=== PATIENT | male | born 1960 | race Caucasian/White ===

== ENCOUNTER 2016-09-02 08:14 | Emergency (ER) | payer BC ==
[~2016-09-02 08:14] MED LIST: FENO135C PO; HYDR-2672 PO; MELO15TA6 PO
[2016-09-02 08:42] VITALS: BP 154/96
--- NOTE | 2016-09-02 08:53 | PHYS DOC ---
Past Medical History Past Medical History: Arthritis, High Cholesterol Additional Past Medical Histor: arthitis Past Surgical History: Other Additional Past Surgical Histo: BACK Alcohol Use: Rarely Drug Use: None Adult General Chief Complaint Chief Complaint: FINGER INJURY HPI HPI Patient is a 56 year old male with history of hypercholesterolemia and asthma who presents with left index finger growth of that he noted on Thursday which is three days ago. Patient denies any drainage from the area. Review of Systems Review of Systems Constitutional: Denies fever or chills [] Musculoskeletal: Denies back pain or joint pain [] Integument: left index finger growth Neurologic: Denies headache, focal weakness or sensory changes [] Endocrine: Denies polyuria or polydipsia [] Current Medications Current Medications Current Medications Medications (Trade) Dose Ordered Sig/Alfredo Start Time Stop Time Status Last Admin Dose Admin Acetaminophen/ Hydrocodone Bitart (Lortab 5/325) 1 tab 1X ONCE 09/02/16 09:00 09/02/16 09:01 DC 09/02/16 08:55 1 TAB Bupivacaine HCl (Marcaine 0.5%) 50 ml 1X ONCE 09/02/16 09:00 09/02/16 09:01 DC 09/02/16 08:56 50 ML Allergies Allergies Allergies Coded Allergies Type Severity Reaction Last Updated Verified Penicillins Allergy Intermediate Hives 08/11/14 Yes Physical Exam Physical Exam Constitutional: Well developed, well nourished, no acute distress, non-toxic appearance. Skin: Left index finger ventral aspect slightly above the MIP joint with an isolated growth approximately 0.1 x 0.1 x 0.3 cm. I slight redness noted at the base of the growth. The growth feels mobile. Back: No tenderness, no CVA tenderness. [] Extremities: No tenderness, no cyanosis, no clubbing, ROM intact, no edema. [] Neurologic: Alert and oriented X 3, normal motor function, normal sensory function, no focal deficits noted. [] Psychologic: Affect normal, judgement normal, mood normal. [] Current Patient Data Vital Signs Vital Signs Date Time Temp Pulse Resp B/P Pulse Ox O2 Delivery O2 Flow Rate FiO2 09/02/16 08:55 12 09/02/16 08:42 98.1 83 98 Room Air 98.1 EKG EKG [] Radiology/Procedures Radiology/Procedures [] Course & Med Decision Making Course & Med Decision Making Pertinent Labs and Imaging studies reviewed. (See chart for details) Patient is in the Ed with growth/lesion to the left. Tetanus was updated. He left before xray was back. I recommended he follows up with the fire technology instructor as soon as he can to have the lesion biopsied. He was given [place] in the Ed. When xray came back it showed there is a possible foreign object on the area of pain. I tried to call patient with no success. Dragon Disclaimer Dragon Disclaimer This electronic medical record was generated, in whole or in part, using a voice recognition dictation system. Departure Departure Impression: Primary Impression: Finger lesion Additional Impression: Foreign body finger Disposition: 01 HOME, SELF-CARE Condition: STABLE Referrals: SHIV MILLER MD (PCP) MCKAYLA CROSS MD Please call this fire technology instructor and follow up as soon as possible Patient Instructions: Excision of Skin Lesions Additional Instructions: You were seen for a lesion on your finger. Please follow up with the provided fire technology instructor as soon as possible they may need to biopsy the lesion to see what it is. Keep the area clean and dry. Scripts Hydrocodone/Apap 5-325 ([place] 5-325 Tablet)1 Each Tablet1-2 Tab PO Q4-6HRS #14 TAB Prov:DALIA BRODERICK APRN 09/02/16 Problem Qualifiers DALIA BRODERICK APRN Sep 02, 2016 08:53
[2016-09-02] MEDS ORDERED: HYDROCODONE/APAP 5/325MG TABLET. PO ONE (09:00)
[2016-09-02] MEDS ORDERED: BUPIVACAINE 0.5% 50 ML VIAL. IJ ONE (09:00)
[2016-09-02] MEDS ORDERED: HYDR-971 PO (09:42)
--- NOTE | 2016-09-02 09:51 | RAD ---
Left index finger, 3 views, 09/02/2016: History: Lump There is a small periarticular calcification adjacent to the DIP joint compatible with an old nonunited fracture. There is mild spurring at the DIP joint compatible with secondary degenerative change. Minimal spurring is also noted at other scattered interphalangeal joints including the PIP joint of the index finger. No acute fracture or dislocation is evident. A small radiopacity projected over the soft tissues along the radial aspect of the proximal phalanx on one view is not evident on the other views and was probably an artifact. IMPRESSION: 1. Small fracture fragment at the DIP joint of the index finger which appears to be old with underlying degenerative change at that joint. 2. No acute bony abnormality is detected.
== END 2016-09-02 10:06 | disposition home or self-care (01) ==
LOC: ER 08:14
DX: M25.842 Other specified joint disorders, left hand (principal); E78.00 Pure hypercholesterolemia, unspecified; M19.90 Unspecified osteoarthritis, unspecified site; J45.909 Unspecified asthma, uncomplicated; Z88.0 Allergy status to penicillin
CPT/HCPCS: 73140; 96372; 99284; J3490; 99283

== ENCOUNTER 2017-04-20 20:05 | Emergency (ER) | payer OTHER, BC ==
[~2017-04-20] VITALS: Ht 167.6 cm; Wt 90.3 kg
[~2017-04-20 20:05] MED LIST changes: -HYDR-2672 PO; +HYDR-2766 PO; +HYDR-971 PO
[2017-04-20 20:40] VITALS: BP 118/59
[2017-04-20] MEDS ORDERED: diazePAM 5 MG TABLET PO ONE (21:15)
[2017-04-20] MEDS ORDERED: HYDROmorphone 2 MG/ML VIAL IM ONE (21:15)
[2017-04-20] MEDS ORDERED: DIAZ5TAB PO (21:19)
[2017-04-20] MEDS ORDERED: OXYC10TA PO (21:19)
--- NOTE | 2017-04-20 21:19 | PHYS DOC ---
Past Medical History Past Medical History: Arthritis, High Cholesterol Additional Past Medical Histor: arthitis Past Surgical History: Other Additional Past Surgical Histo: BACK Alcohol Use: Occasionally Drug Use: None Adult General Chief Complaint Chief Complaint: HIP PAIN HPI HPI Patient is a 56 year old male who presents with moderate right low back pain radiating into the right hip and right lower extremity that has been going on for week. Patient states he has already been seen by the PCP who put him on oxycodone and cyclobenzaprine. Patient states today his pain got worse. No known injury. Patient denies any loss of bowel bladder function. Denies any numbness or tingling to bilateral lower extremities. He states he had muscle spasms on the right inner thigh today. Review of Systems Review of Systems Constitutional: Denies fever or chills [] GI: Denies abdominal pain, nausea, vomiting, bloody stools or diarrhea [] : Denies dysuria or hematuria [] Musculoskeletal: Right low back pain radiating into the right hip and right lower extremity Integument: Denies rash or skin lesions [] Neurologic: Denies headache, focal weakness or sensory changes [] Current Medications Current Medications Current Medications Medications (Trade) Dose Ordered Sig/Alfredo Start Time Stop Time Status Last Admin Dose Admin Diazepam (Valium) 5 mg 1X ONCE 04/20/17 21:15 04/20/17 21:16 DC 04/20/17 21:07 5 MG Hydromorphone HCl (Dilaudid) 1 mg 1X ONCE 04/20/17 21:15 04/20/17 21:16 DC 04/20/17 21:06 1 MG Ketorolac Tromethamine (Toradol Im) 60 mg 1X ONCE 04/20/17 21:30 04/20/17 21:31 04/20/17 21:07 60 MG Allergies Allergies Allergies Coded Allergies Type Severity Reaction Last Updated Verified Penicillins Allergy Intermediate Hives 08/11/14 Yes Physical Exam Physical Exam Constitutional: Well developed, well nourished, no acute distress, non-toxic appearance. [] Abdomen: Bowel sounds normal, soft, no tenderness, no masses, no pulsatile masses. [] Skin: Warm, dry, no erythema, no rash. [] Back: Exam difficult due to pain, no CVA tenderness. Positive right leg straight raises Extremities: No tenderness, no cyanosis, no clubbing, ROM intact, no edema. [] Neurologic: Alert and oriented X 3, normal motor function, normal sensory function, no focal deficits noted. [] Psychologic: Affect normal, judgement normal, mood normal. [] Current Patient Data Vital Signs Vital Signs Date Time Temp Pulse Resp B/P (MAP) Pulse Ox O2 Delivery O2 Flow Rate FiO2 04/20/17 21:06 18 Room Air 04/20/17 20:40 98.3 68 97 98.3 EKG EKG [] Radiology/Procedures Radiology/Procedures [] Course & Med Decision Making Course & Med Decision Making Pertinent Labs and Imaging studies reviewed. (See chart for details) Patient is in the ED with right low back pain radiating into the right hip and right lower extremity. He does have hx of low back pain. He was seen by the PCP. was given medications. He states his pain is worse today. Gave him pain relief in the ED and discharged with instructions to follow-up with the PCP in the next 1-3 days. He has no symptoms for Cauda equina syndrome. Dragon Disclaimer Dragon Disclaimer This electronic medical record was generated, in whole or in part, using a voice recognition dictation system. Departure Departure Impression: Primary Impression: Back pain Additional Impressions: Sciatica, right side Right hip pain Disposition: HOME, SELF-CARE Condition: STABLE Referrals: SHIV MILLER MD (PCP) Follow-up with your doctor tomorrow Patient Instructions: Back Pain, Adult, Hip Pain, Sciatica with Rehab-SportsMed Additional Instructions: You were seen for right hip pain, right low back pain, and pain radiating to the right lower extremity consistent with sciatica. We highly recommend you contact your primary care doctor tomorrow and follow-up. Come back to the ED at any point symptoms worsen. Scripts Oxycodone Hcl (OXYCODONE HCL) 10 Mg Tablet 1 TAB PO TID, #15 TAB Prov: MUTUNGADALIA COLLEGE TEACHER 04/20/17 Diazepam (VALIUM) 5 Mg Tablet 5 MG PO TID, #15 TAB Prov: MUTUNGA,DALIA COLLEGE TEACHER 04/20/17 Problem Qualifiers Primary Impression: Back pain Back pain location: low back pain Chronicity: acute Back pain laterality: right Sciatica presence: with sciatica Sciatica laterality: sciatica of right side Qualified Codes: M54.41 - Lumbago with sciatica, right side DALIA BRODERICK APRN Apr 20, 2017 21:19
[2017-04-20] MEDS ORDERED: KETOROLAC TROMETHAMINE 60 MG/2 ML INJ. IM ONE (21:30)
== END 2017-04-20 21:34 | disposition home or self-care (01) ==
LOC: ER 20:05
DX: M54.41 Lumbago with sciatica, right side (principal); E78.00 Pure hypercholesterolemia, unspecified; M19.90 Unspecified osteoarthritis, unspecified site; Z88.0 Allergy status to penicillin
CPT/HCPCS: 96372; 99284; J1170; J1885

== ENCOUNTER → 2017-04-29 | Outpatient (CLI) | payer OTHER, BC ==
[2017-04-20 20:40] VITALS: BP 118/59
[~2017-04-29] MED LIST changes: +DIAZ5TAB PO; +OXYC10TA PO
--- NOTE | 2017-04-29 08:59 | KCIC ---
MRI Lumbar Spine without contrast History: Low back pain with right radiculopathy, previous back surgeries, pain for a few months worse the last couple of weeks Technique: Multiplanar, multi sequential noncontrast MR imaging was performed of the lumbar spine. Contrast: None Comparison: None Findings: There appears to be transitional anatomy. For the purpose of this report, most inferior fully formed although rudimentary intervertebral disc space is considered L5-S1. Based on this assumption, there is very minimal posterior subluxation of what is considered L4 relative to L5 and negligible anterior spondylolisthesis at what is considered L3-4. There is hemangioma of T12. Conus terminates at T12-L1. There is advanced degenerative disc disease at L4-5, minimally at L3-4. There is mild edema of the bilateral L4 pedicles extending to the facet articular processes more likely to be reactive/degenerative in etiology. Lumbar vertebral body stature is preserved. Not fully included, there is a 2.7 cm T2 hyperintense lesion of the left kidney, also small focus on the order of 1 cm. Foci are statistically most likely due to cysts. L1-L2: Spinal canal and neural foramina are adequate. L2-L3: Spinal canal and neural foramina are adequate. L3-L4: There is moderate to severe facet degenerative change. There is fluid in the facet articulations bilaterally. There is minimal posterior bulge. There is also larger focus of extradural signal abnormality extending above the intervertebral disc space in the right lateral recess somewhat hyperintense relative to signal characteristics of adjacent disc although extruded disc fragment favored. This measures approximately 18 mm CC by 11 mm AP by 15 mm transverse. There is severe narrowing of the right lateral recess above the intervertebral disc space level, also impingement of the right L3 nerve root at the proximal aspect of the neural foramen and in the right lateral recess. There is severe narrowing of the right neural foramen more proximally, to a somewhat lesser degree more distally by bulge which contacts the undersurface of the exiting right L3 nerve root including in the proximal extraforaminal region. Left neural foramen is overall adequate. At the intervertebral disc space level, there is overall moderate narrowing of the far lateral recesses bilaterally. Just below the intervertebral disc space, there is also 14 mm CC by 9 mm AP by 9 mm presumable synovial cyst in the posterior right lateral recess. There is indentation upon the posterior aspect of the thecal sac in the right lateral recess extending to the mid aspect of L4, overall moderate to severe right lateral recess stenosis. L4-L5: There is broad disc osteophyte complex. There has been right laminectomy. At the intervertebral disc space level, there is minimal narrowing of the far right lateral recess. Neural foramina are adequate. L5-S1: Spinal canal and neural foramina are adequate. Impression: 1. There appears to be transitional anatomy. For the purpose of this report, the most inferior fully formed although rudimentary intervertebral disc space is considered L5-S1. There is very minimal posterior subluxation of what is considered L4 relative to L5 and negligible anterior spondylolisthesis at what is considered L3-4. 2. Larger focus of signal abnormality extending above the L3-4 intervertebral disc space in the right lateral recess is most likely a large extrusion, impingement of the right L3 nerve root in the right lateral recess and also at the proximal aspect of the right L2-3 neural foramen. There is also a synovial cyst just below the L3-4 intervertebral disc space level in the posterior right lateral recess with right lateral recess stenosis. At the L3-4 intervertebral disc space level, there is overall moderate spinal stenosis. There is severe narrowing of the proximal right L3-4 neural foramen, to lesser degree more distally with contact undersurface exiting right L3 nerve root by bulge including in the proximal extraforaminal region. 3. There is advanced degenerative disc disease L4-5, minimally at L3-4. 4. Edema of the bilateral L4 pedicles extending to the facet articular processes is more likely to be reactive/degenerative in etiology. 5. Not fully included, T2 hyperintense foci of the visualized left kidney are more likely due to cysts. Electronically signed by: Jerome Dowling MD (04/29/2017 8:56 AM) [email or web address]
== END | disposition home or self-care (01) ==
LOC: KCIC MRI 07:54
PROVIDERS: ATTEND Family Medicine
DX: M48.06 Spinal stenosis, lumbar region (principal); M71.38 Other bursal cyst, other site; M43.16 Spondylolisthesis, lumbar region
CPT/HCPCS: 72148

== ENCOUNTER → 2017-06-17 | Outpatient (CLI) | payer OTHER, BC ==
[~2017-06-17] MED LIST changes: +CYCL10TA2 PO; +DOCU-109 PO; +OXYC-327 PO
[2017-06-17 14:03] LABS: BASO % 1 % (0-3); EOS % 1 % (0-3); HEMOGLOBIN 14.7 g/dL (13.0-17.5); LYMPH # 2.8 x10^3/uL (1.0-4.8); LYMPH % 31 % (24-48); MEAN CORPUSCULAR HEMOGLOBIN 31 pg (25-35); MEAN CORPUSCULAR HGB CONC 35 g/dL (31-37); MEAN CORPUSCULAR VOLUME 88 fL (79-100); MONO % 5 % (0-9); NEUT % 63 % (31-73); PLATELET COUNT 196 x10^3/uL (140-400); RED BLOOD COUNT 4.75 x10^6/uL (4.30-5.70); RED CELL DISTRIBUTION WIDTH 12.7 % (11.5-14.5); WHITE BLOOD COUNT 8.9 x10^3/uL (4.0-11.0)
[2017-06-17 14:14] LABS: ALBUMIN 3.8 g/dL (3.4-5.0); ALBUMIN/GLOBULIN RATIO 1.1 (1.0-1.7); CALCIUM 8.4 mg/dL (8.5-10.1); CREATININE 1.1 mg/dL (0.7-1.3); GFR 69.5; POTASSIUM 3.3 mmol/L (3.5-5.1); TOTAL BILIRUBIN 0.3 mg/dL (0.2-1.0); TOTAL PROTEIN 7.4 g/dL (6.4-8.2)
== END | disposition home or self-care (01) ==
LOC: SURGPAT 13:26
PROVIDERS: ATTEND Neurological Surgery
DX: M54.16 Radiculopathy, lumbar region (principal); M51.26 Other intervertebral disc displacement, lumbar region; E78.00 Pure hypercholesterolemia, unspecified; M19.90 Unspecified osteoarthritis, unspecified site; F17.200 Nicotine dependence, unspecified, uncomplicated; Z72.89 Other problems related to lifestyle
CPT/HCPCS: 36415; 80053; 83036; 85025; 87641

== ENCOUNTER 2017-06-24 10:03 | Day surgery (SDC) | payer OTHER, BC ==
--- NOTE | 2017-06-23 18:28 | PREOP HP ---
DATE OF SERVICE: 06/24/2017 HISTORY OF PRESENT ILLNESS: The patient is a pleasant 57-year-old who reports over a recent month having difficulty with increasing low back pain and some pain which can radiate into his right leg. He early March and dissembled. He said that from that point forward, he has had extremely severe pain in his lower back on the right side, which radiates into his right leg. That pain tends to radiate over the right anterior and anterior medial thigh and medial leg. Standing and walking make the problem worse. He gets some relief when he lies down with his leg on pillows if he is lying on his left side. During the day, he says his pain never drops below 7/10. He is taking [place] 10/325, which barely helps. He feels as though there is some weakness and numbness in his right leg. The left leg is uninvolved. He has had 2 previous lumbar surgeries. One was done in 1989, the other was done by me in 2007. Following 2008 operation, he did very well. 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 He is missing work frequently, resting and trying to improve, but if anything, his problem has been slowly worsening. PAST MEDICAL HISTORY: Arthritis, MRSA infection. PAST SURGICAL HISTORY: Lumbar surgery in 1989, lumbar surgery in 2007, hernia surgery in 2009, cataract surgery in 2013. FAMILY HISTORY: Cancer, diabetes, heart disease. 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 . Smokes 1-1/2 packs per day and has for 30 years. Drinks alcohol 1-2 times per month. ALLERGIES: TO PENICILLIN. CURRENT MEDICATIONS: [place], meloxicam, fenofibric acid, cyclobenzaprine and a multivitamin. REVIEW OF SYSTEMS: A 12-point review of systems was obtained and is noncontributory except that mentioned above. PHYSICAL EXAMINATION: NEUROSURGERY EXAMINATION: GENERAL APPEARANCE: Alert, pleasant, in moderate distress. Sitting and leaning to the left decrease his pain. HEENT: Head normocephalic and atraumatic. SKIN: Warm and dry. MUSCULOSKELETAL: Lumbar paraspinal muscle bulk is normal, restricted range of motion of lumbar spine, moderate tenderness of lower lumbar spine with palpation, long well-healed incision is present. EXTREMITIES: No clubbing, cyanosis, or edema. NEUROLOGIC: Alert and oriented x 3, normal recent and remote memory, strength 5/5 in bilateral lower extremities except for 4+/5 right quadriceps, sensory was intact to light touch in bilateral lower extremities except for decrease along the right anterior medial thigh and leg. Reflexes were present and symmetric in the lower extremities bilaterally except for an absent right knee jerk, positive straight leg raising on the right at 30 degrees with back, right hip and right anterior medial leg pain relieved by Lasegue's maneuver, positive cross straight leg raising on the left, forward stooped gait, antalgic gait favoring the right leg. IMAGING: Reviewed. I reviewed the lumbar MRI scan done 04/29/2017. On that study, there are postoperative changes at L4-L5 corresponding to his previous surgery. At L3-L4, just below the disk space, there was a large right-sided synovial cyst with right-sided canal stenosis and narrowing of the right lateral recess. Extending of the disk space and superiorly on the right side, there appears to be a large disk extrusion which not only is associated with right-sided canal and lateral recess stenosis, but appears to compress the right L3 nerve root in the foramen as well. ASSESSMENT: 1. Other bursal cyst, unspecified site. 2. Intervertebral disk disorders with radiculopathy, lumbar region. PLAN: The patient is very symptomatic from a right lumbar radiculopathy. The pain has been such that he has already been seen in the Emergency Room. He is taking [place] 10/325, which he says is not managing his pain. The patient has had 2 significant abnormalities on the right side L3-L4 on the lumbar MRI scan. One is a large synovial cyst, the other is a large extruded disk fragment. The L3 and L4 roots on the right side are being compressed along with right-sided canal stenosis at this level. We spoke about treatment options. His pain is of such severity that I have taken him off work completely. I do not believe that the physical therapy and/or steroid injections can offer him any meaningful chance of improvement. I discussed with him surgery to both remove an extruded disk fragment, but also to deal with a large synovial cyst. I spoke about the risks of the surgery. I spoke about the technique of the operation in detail. He understands. He would like to go ahead. We will make the arrangements. DEYANIRA COOLEY MD DR: HERRERA/desmond JOB#: [id number] / [id number]
[~2017-06-24] VITALS: Ht 167.6 cm; Wt 95.3 kg
[~2017-06-24 10:03] MED LIST changes: +BACITRACIN 50,000 UNIT in IV NORMAL SALINE 1000ML BAG 1,000 ML IRR ONE; +BUPIVACAINE-EPI 0.25%-1:200000 MPF 30 ML VIAL. ONE; -DOCU-109 PO; +GELATIN SPONGE SIZE 100. ONE; +HYDROmorphone 2 MG/ML VIAL IV PRN; +IV RINGERS,LACTATED 1000ML 1,000 ML IV SCH; +KETOROLAC 60 MG/2 ML INJ FOR OR. ONE; +LIDOCAINE 1% PF 2 ML VIAL. ID PRN; +LIDOCAINE 2% PF Vial for OR 5 ML VIAL. ONE; +ONDANSETRON PF 4 MG/2 ML VIAL. IV PRN; +PROCHLORPERAZINE 10 MG/2 ML VIAL. IV PRN; +PROPOFOL 20 ML IV ONE; +REMIFENTANIL 2 MG VIAL. IV ONE; +ROCURONIUM 50 MG/5 ML VIAL. ONE; +THROMBIN TOPICAL 20,000 UNIT SPRAY.SYRN KIT TP ONE; +VANCOMYCIN 1GM IVPB FOR OMNI 250 ML IV PRN; +fentaNYL PF VIAL 100 MCG/2 ML VIAL IV PRN; +fentaNYL PF VIAL 100 MCG/2 ML VIAL ONE
[2017-06-24] MEDS ORDERED: LIDOCAINE 2% PF Vial for OR 5 ML VIAL. ONE (10:35)
[2017-06-24] MEDS ORDERED: ONDANSETRON PF 4 MG/2 ML VIAL. ONE (10:35)
[2017-06-24] MEDS ORDERED: PROPOFOL 20 ML IV ONE (10:35)
[2017-06-24] MEDS ORDERED: DESFLURANE > 120 MINUTES IH ONE ×2 (10:35→14:17)
[2017-06-24] MEDS ORDERED: PROPOFOL 50 ML IV ONE ×2 (10:35→14:11)
[2017-06-24] MEDS ORDERED: DEXAMETHASONE SOD PHOS 20 MG/5 ML VIAL. ONE (10:35)
[2017-06-24] MEDS ORDERED: MINERAL OIL/PETROLATUM,WHITE OPHTH OINT 3.5GM TUBE. ONE (10:37)
[2017-06-24] MEDS ORDERED: SUCCINYLCHOLINE 200 MG/10 ML VIAL. ONE (12:01)
[2017-06-24] MEDS ORDERED: fentaNYL PF VIAL 100 MCG/2 ML VIAL ONE ×2 (12:02→14:39)
[2017-06-24] MEDS ORDERED: PHENYLEPHRINE in 0.9% NACL PF 1 MG/10 ML DISP.SYRIN. IV ONE (12:29)
[2017-06-24] MEDS ORDERED: ePHEDrine PF IN SALINE 50 MG/5 ML DISP.SYRIN IV ONE (12:29)
[2017-06-24] MEDS ORDERED: GLYCOPYRROLATE 1 MG/5 ML VIAL. ONE (13:55)
[2017-06-24] MEDS ORDERED: NEOSTIGMINE METHYLSULFATE 5 MG/5 ML SYRINGE. ONE (13:55)
[2017-06-24] MEDS ORDERED: MORPHINE SULFATE 2 MG/ML DISP.SYRIN. ONE (14:38)
[2017-06-24] MEDS: MORPHINE SULFATE 2 MG/ML DISP.SYRIN. IV PRN ×2 (14:42→14:52)
[2017-06-24] MEDS: fentaNYL PF VIAL 100 MCG/2 ML VIAL IV PRN ×3 (14:57→15:25)
--- NOTE | 2017-06-24 15:14 | OP ---
DATE OF SURGERY: 06/24/2017 PREOPERATIVE DIAGNOSES: 1. Herniated lumbar disc, L3 with superior disc fragment compressing the right L3 nerve root. 2. Synovial cyst with lumbar spinal stenosis, L4. OPERATION PERFORMED: 1. Lumbar hemilaminectomy L3 with removal of superior disc herniation and decompression of L3 nerve root. 2. Laminectomy L4 with removal of synovial cyst and decompression of spinal stenosis. The operation was performed with EMG monitoring, fluoroscopy and microscopic dissection. SURGEON: Isaiah Cooley M.D. CHARGE MACHINE OPERATOR: Rodrigue Wilkinson MD assisted with the surgery. He assisted with the exposure, the microdiscectomy with removal of synovial cyst as well as the closure. OPERATIVE INDICATIONS: The patient is a pleasant 57-year-old man who developed severe intractable back and right leg pain which failed conservative measures. On imaging studies at L3-L4, there was superior disc herniation compressing the L3 and to lesser extent the L4 nerve roots as well as the synovial cyst, which was positioned behind the upper body of L4 on the right. I recommended lumbar microsurgery with a laminectomy at L3-L4 moving superiorly to remove the herniated disc superiorly as well as inferiorly over the body of L4 removing the synovial cyst. The operation was done with EMG monitoring, fluoroscopy and microscopic dissection. DESCRIPTION OF PROCEDURE: Following general endotracheal anesthesia, the patient was positioned prone on David table. His lumbar region was prepped and draped in standard fashion. NELLY hose and AV impulse boots were applied for DVT prophylaxis. The microscope was draped. Fluoroscopy was draped and brought in the field. Monitoring was established. Vancomycin 1 gram was given. Using fluoroscopic guidance, incision was made from inferior L4 to superior L3. Dissection was carried down to skin and subcutaneous tissue and the paraspinal muscles reflected laterally and a Bock micro disc retractor was placed. Microscope was brought in and the remainder of surgery done with the microscope using microscopic technique. I burred down a generous hemilaminectomy of L3. The ligament was densely scarred and adherent to the underlying dura so I spent a considerable time gently peeling down the ligament and thus was able to gain exposure superiorly to the region of the disc fragment. I worked inferiorly at this point and removed the ligament and drilled the laminectomy of L4 to allow me to remove the large synovial cyst and thickened ligament compressing the dura from the mid L4 region. Once this was accomplished the central canal stenosis was eliminated and the L4 and L5 roots were free. I then worked superiorly and further exposed the superior aspect of L3 as well as the L3 pedicle and gently retracted the dura medially. There was a large superior disc fragment abutting the inferior pedicle of L3 and extending superiorly along the medial aspect of the pedicle as well as a portion which extended out into the foramen. As I worked, the entire region became very well decompressed. Inferiorly, the L3-4 disc was quite flat and firm and no discectomy was warranted. I explored the entire region carefully and no retained fragments were found. I irrigated copiously with antibiotic solution. I did use bipolar cautery for any epidural bleeding as well as bleeding in the muscle and I also used bone wax for any bone bleeding. Hemostasis was excellent. I removed the retractor, irrigated copiously, obtained hemostasis in the muscle and then closed the wound in layers with absorbable suture and skin was closed with 4-0 subcuticular stitch. The operation went very well. I was quite pleased with the surgery. ISAIAH COOLEY MD DR: HERRERA/desmond JOB#: [id number] / [id number] DAMIR
--- NOTE | 2017-06-24 15:29 | DISCH ---
DISCHARGE INSTRUCTIONS Condition on Discharge Condition on Discharge: Stable Activity After Discharge Activity Instructions for Disc: Activity as tolerated, Avoid exertion Other activity instructions: no driving for a week Bathing Instructions: Shower-keep dressing dry Lifting Instructions after Dis: No heavy lifting, No pulling or pushing, Do not lift >10 pounds Diet after Discharge Additional Diet Restrictions: resume home diet Wound Incision Care Wound/Incision Care: Ice to area for comfort Other wound/incision instructi: may remove dressing in 48 hrs if dry then may shower- no soaking Contacting the after DC Call your doctor for: Concerns you may have Follow-Up Follow up with: Dr. Cooley's nurse [phone] DEYANIRA COOLEY MD Jun 24, 2017 15:29
[2017-06-24] MEDS ORDERED: oxyCODONE/APAP 7.5/325 1 TAB TABLET PO PRN (15:30)
[2017-06-24] MEDS ORDERED: DOCU-109 PO (15:32)
[2017-06-24 16:23] VITALS: BP 128/71
--- NOTE | 2017-06-29 11:46 | PATHOLOGY ---
PATHOLOGY REPORT * * * * * * * * FINAL DIAGNOSIS: A. Segments of fibrocartilaginous, fibroadipose, and skeletal muscle tissue and bone, lumbar decompression and disc: - Degenerative changes of fibrocartilaginous tissue. B. Segments of synovial and fibrocartilaginous tissue, designated "synovial cyst": - Synovial cyst showing focal reactive fibrosis and hemosiderin-laden macrophages. (JPM:august; 06/29/2017) COMMENT: There is no evidence of an acute inflammatory process or malignancy. REPORT ELECTRONICALLY SIGNED BY: Phill Glover M.D. DATE/TIME: 06/29/2017 11:46 * * * * * * * * GROSS PATHOLOGY: A. Received in formalin labeled "Mike Zamorano, lumbar decompression and disc," are multiple segments of glistening, whitmore, rubbery and gritty tissue, measuring 5.0 x 2.5 x 0.5 cm in aggregate dimensions. The tissue is submitted representatively in cassette A1, following decalcification. B. The specimen is received in formalin, labeled "Mike Zamorano, synovial cyst," and consists of 3 fragments of judd-whitmore soft tissue measuring between 1.0 x 0.9 x 0.4 cm and 0.5 x 0.4 x 0.2 cm. There are entirely submitted in cassette B1. (SDY; 06/26/2017) INITIAL CPT CODE(S): A; 17283, 38366 B; 92612 Professional services performed [place] [facility] [place] [address] Technical services performed by [facility] at [address] [place] [address], [address], [place] [address]. SPECIMEN(S) RECEIVED: A.Lumbar decompression and disc B.Synovial cyst CLINICAL HISTORY: Lumbar herniated disc, synovial cyst PATIENT: MIKE ZAMORANO /AGE: 1006/07/1960 (Age: 57) PATIENT #: [id number] ALT CASE #: SPECIMEN COLLECTION DATE: 06/24/2017 SPECIMEN RECEIVED DATE: 06/25/2017 [facility] - [address] [place] [address] - PHONE: [phone] * * * END OF REPORT * * *
== END 2017-06-24 16:46 | disposition home or self-care (01) ==
LOC: SURG 10:03
PROVIDERS: ATTEND Neurological Surgery
DX: M51.26 Other intervertebral disc displacement, lumbar region (principal); M48.061 Spinal stenosis, lumbar region without neurogenic claudication; M71.38 Other bursal cyst, other site; E78.00 Pure hypercholesterolemia, unspecified; K21.9 Gastro-esophageal reflux disease without esophagitis; F17.200 Nicotine dependence, unspecified, uncomplicated; M19.91 Primary osteoarthritis, unspecified site; Z72.89 Other problems related to lifestyle; Z86.69 Personal history of other diseases of the nervous system and sense organs; Z72.0 Tobacco use; Z88.0 Allergy status to penicillin
CPT/HCPCS: 63030; 63267; 76000; 88304; 88311; 97161; J0330; J1100; J1885; J2270; J2370; J2405; J2704; J2710; J3010; J3490; J7030; J2001

== ENCOUNTER → 2021-08-19 | Outpatient (CLI) | payer BC ==
[~2021-08-19] MED LIST changes: -BACITRACIN 50,000 UNIT in IV NORMAL SALINE 1000ML BAG 1,000 ML IRR ONE; -BUPIVACAINE-EPI 0.25%-1:200000 MPF 30 ML VIAL. ONE; +CYCL10TA19 PO; -CYCL10TA2 PO; +DOCU-109 PO; +GADOTERATE 7.5 MMOL/15ML VIAL. IVP ONE; -GELATIN SPONGE SIZE 100. ONE; -HYDR-2766 PO; +HYDR-2769 PO; +HYDR-3164 PO; -HYDR-971 PO; -HYDROmorphone 2 MG/ML VIAL IV PRN; -IV RINGERS,LACTATED 1000ML 1,000 ML IV SCH; -KETOROLAC 60 MG/2 ML INJ FOR OR. ONE; -LIDOCAINE 1% PF 2 ML VIAL. ID PRN; -LIDOCAINE 2% PF Vial for OR 5 ML VIAL. ONE; -ONDANSETRON PF 4 MG/2 ML VIAL. IV PRN; -OXYC-327 PO; +OXYC1TAB19 PO; -PROCHLORPERAZINE 10 MG/2 ML VIAL. IV PRN; -PROPOFOL 20 ML IV ONE; -REMIFENTANIL 2 MG VIAL. IV ONE; -ROCURONIUM 50 MG/5 ML VIAL. ONE; -THROMBIN TOPICAL 20,000 UNIT SPRAY.SYRN KIT TP ONE; -VANCOMYCIN 1GM IVPB FOR OMNI 250 ML IV PRN; -fentaNYL PF VIAL 100 MCG/2 ML VIAL IV PRN; -fentaNYL PF VIAL 100 MCG/2 ML VIAL ONE
--- NOTE | 2021-08-19 15:00 | KCIC ---
EXAM: Lumbar spine MRI without contrast. HISTORY: Back pain. Radiculopathy. TECHNIQUE: Multiplanar, multisequence magnetic resonance imaging of the lumbar spine was performed wi thout contrast. COMPARISON: 04/29/2017 FINDINGS: There is a transitional lumbosacral segment. This is considered a partially sacralized L5 s egment with rudimentary L5-S1 disc. Based on this numbering system, there is a 6 mm grade 1 anterolis thesis of L3 on L4. There is 3 mm retrolisthesis of L4 on L5. There is 2 mm retrolisthesis of T11 on T12. There is mild levoscoliosis. There is degenerative endplate remodeling with disc space narrowing and disc desiccation primarily at L3-L4 and L4-L5. There are multiple benign osseous hemangiomas. There is no suspicious osseous lesio n. There is no acute or subacute fracture. The conus terminates at T12-L1. There are small simple geo al cysts. The largest of these measures 3.3 cm on the left. Follow-up is not routinely performed for simple cysts. At T11-T12, there is a disc bulge and endplate remodeling. There is mild retrolisthesis. There is mil d left greater than right facet arthropathy. There is mild right foraminal stenosis. At T12-L1, there is mild left facet arthropathy. There is no stenosis. At L1-L2, there is no stenosis. At L2-L3, there is no stenosis. At L3-L4, there is a right foraminal to extra foraminal disc protrusion with 5 mm superior extrusion and annular tear. There is also a left lateral recess to foraminal disc protrusion and 4 mm superior extrusion and annular tear. These are superimposed on a disc bulge and endplate remodeling. There is severe bilateral facet arthropathy. There are partial right laminectomy changes. There is grade 1 ant erolisthesis. There is severe right greater than left foraminal stenosis. There is severe central can al stenosis. At L4-L5, there is a broad-based posterior central disc protrusion with slight superior and inferior extrusion and there is a right lateral recess to extra foraminal disc protrusion and osteophyte compl ex. These are superimposed on a disc bulge and endplate osteophytosis. There is mild retrolisthesis. There is mild right and moderate left facet arthropathy. There is a small posterior left facet joint synovial cyst. There are right hemilaminectomy changes. There is mild retrolisthesis. There is minima l bilateral foraminal stenosis. There is mild central canal stenosis. At L5-S1, there is a rudimentary disc. There is no stenosis. IMPRESSION: 1. L3-L4: Right foraminal to extraforaminal disc protrusion with superior extrusion and left lateral recess to foraminal disc protrusion with superior extrusion. These are superimposed on a disc bulge, endplate remodeling, severe facet arthropathy and grade 1 anterolisthesis, increased compared to the prior exam an associated with severe right greater than left foraminal and central canal stenosis. Th ere has been interval right hemilaminectomy changes at this level. The previously demonstrated synovi al cyst and posterior superior extruded disc material are no longer seen. 2. L4-L5: Degenerative changes resulting in minimal bilateral foraminal and mild central canal stenos is, not significantly changed compared to the prior study. There are stable right hemilaminectomy quin nges at this level. 3. Degenerative change throughout the remainder the lumbar spine, described above. 4. Transitional lumbosacral segment, considered a partially sacralized L5 segment for this dictation. Electronically signed by: Jill Mora MD (08/19/2021 2:57 PM) [id number]
== END ==
LOC: KCIC MRI 12:28
PROVIDERS: ATTEND Family Medicine
DX: M47.26 Other spondylosis with radiculopathy, lumbar region (principal); M51.27 Other intervertebral disc displacement, lumbosacral region; M48.07 Spinal stenosis, lumbosacral region; M48.8X7 Other specified spondylopathies, lumbosacral region; M43.19 Spondylolisthesis, multiple sites in spine; M43.27 Fusion of spine, lumbosacral region
CPT/HCPCS: 72158; A9575

== ENCOUNTER → 2021-10-09 | Outpatient (CLI) | payer BC ==
[~2021-10-09] MED LIST changes: -GADOTERATE 7.5 MMOL/15ML VIAL. IVP ONE
--- NOTE | 2021-10-09 15:30 | KCIC ---
EXAM: Lumbar spine, flexion and extension. HISTORY: Spondylolisthesis. COMPARISON: 08/19/2021. FINDINGS: Lateral neutral, flexion and extension views of the lumbar spine are obtained. There is a t ransitional lumbosacral segment. This is considered a partially sacralized L5 segment with rudimentar y L5-S1 disc for this dictation. Based on this numbering system, there is grade 1 anterolisthesis of L3 on L4 which measures 9 mm in neutral position and, 6 mm with extension and 12 mm with flexion. The re is uniform retrolisthesis of L4 on L5 which does not change between flexion and extension. There i s multilevel endplate remodeling and anterior spurring. There is suspected narrowing and facet arthro patrica predominantly at L4-L5, and to a lesser extent, L3-L4. IMPRESSION: 1. Grade 1 anterolisthesis of L3 on L4 which changes between flexion and extension. 2. Mild retrolisthesis of L4 and L5 which does not change between flexion and extension. 3. Multilevel degenerative change, primarily at L4-L5. 4. Transitional lumbosacral segment, considered L5 for this dictation. Electronically signed by: Jill Mora MD (10/09/2021 3:28 PM) [id number]
== END ==
LOC: KCIC 14:33
PROVIDERS: ATTEND Family Medicine
DX: M43.16 Spondylolisthesis, lumbar region (principal); M47.816 Spondylosis without myelopathy or radiculopathy, lumbar region; M46.06 Spinal enthesopathy, lumbar region; M43.27 Fusion of spine, lumbosacral region
CPT/HCPCS: 72100

== ENCOUNTER → 2021-10-29 | Outpatient (CLI) | payer BC ==
[~2021-10-29] MED LIST changes: +APRE30TA2 PO; +CELE100C PO
[2021-10-29 14:13] LABS: BASO # 0.1 x10^3/uL (0.0-0.2); BASO % 1 % (0-3); EOS # 0.1 x10^3/uL (0.0-0.7); EOS % 2 % (0-3); HEMATOCRIT 41.6 % (39.0-53.0); HEMOGLOBIN 14.4 g/dL (13.0-17.5); LYMPH # 2.3 x10^3/uL (1.0-4.8); LYMPH % 29 % (24-48); MEAN CORPUSCULAR HEMOGLOBIN 31 pg (25-35); MEAN CORPUSCULAR HGB CONC 35 g/dL (31-37); MEAN CORPUSCULAR VOLUME 89 fL (79-100); MONO # 0.7 x10^3/uL (0.0-1.1); MONO % 9 % (0-9); NEUT # 4.6 x10^3/uL (1.8-7.7); NEUT % 60 % (31-73); PLATELET COUNT 226 x10^3/uL (140-400); RED BLOOD COUNT 4.65 x10^6/uL (4.30-5.70); RED CELL DISTRIBUTION WIDTH 12.3 % (11.5-14.5); WHITE BLOOD COUNT 7.7 x10^3/uL (4.0-11.0)
[2021-10-29 14:25] LABS: PROTHROMBIN TIME PATIENT 12.9 SEC (11.7-14.0)
[2021-10-29 14:28] LABS: ALBUMIN 4.2 g/dL (3.4-5.0); ALBUMIN/GLOBULIN RATIO 1.2 (1.0-1.7); CALCIUM 8.1 mg/dL (8.5-10.1); CREATININE 0.9 mg/dL (0.7-1.3); GFR 86.4; POTASSIUM 3.9 mmol/L (3.5-5.1); TOTAL BILIRUBIN 0.3 mg/dL (0.2-1.0); TOTAL PROTEIN 7.7 g/dL (6.4-8.2)
== END ==
LOC: SURGPAT 13:33
PROVIDERS: ATTEND Neurological Surgery
DX: Z01.812 Encounter for preprocedural laboratory examination (principal); M48.062 Spinal stenosis, lumbar region with neurogenic claudication; M43.16 Spondylolisthesis, lumbar region; M51.16 Intervertebral disc disorders with radiculopathy, lumbar region
CPT/HCPCS: 36415; 80053; 85025; 85610; 85730; 87641

== ENCOUNTER 2021-11-04 05:59 | Inpatient (IN) | payer BC ==
[2021-10-29 14:01] VITALS: BP 127/67
--- NOTE | 2021-11-03 12:09 | PREOP HP ---
DATE OF SERVICE: 11/04/2021 HISTORY OF PRESENT ILLNESS: The patient is a pleasant 61-year-old who has undergone 3 surgeries on his lumbar spine. He currently has problems with low back pain and left greater than right leg pain. It radiates to the posterior thighs and legs to the top of his left foot. His toes feel numb. It started about a year ago and has been gradually worsening. He says his pain is usually 4-5/10, but with walking it increases to 10/10. Sitting and lying down helps. 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 He has continued to work. He takes gabapentin and Celebrex. Occasionally, he takes hydrocodone. He has had physical therapy in late 2019 for this problem with no significant improvement. He had epidural steroid injections in the past without benefit. CURRENT MEDICATIONS: Gabapentin, Otezla, hydrocodone, fenofibric acid, multivitamin, Celebrex. PAST MEDICAL HISTORY: Arthritis, MRSA infection, psoriasis. PAST SURGICAL HISTORY: Lumbar surgery in 1989, lumbar surgery in 2007, hernia surgery in 2009, cataract surgery in 2013, lumbar surgery with microdecompression, microdiskectomy and removal of synovial cyst at L3-4 in 05/2017. FAMILY HISTORY: Cancer, diabetes, heart disease. 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 . Smokes 1 pack per day for 40 years. Drinks alcohol 1-2 times per week. ALLERGIES: PENICILLIN ALLERGY. REVIEW OF SYSTEMS: A 12-point review of systems was performed and is noncontributory except that mentioned above. PHYSICAL EXAMINATION: GENERAL: Alert, pleasant, in no acute distress. HEENT: Head is normocephalic, atraumatic. SKIN: Warm and dry. Well-healed lumbar incision. MUSCULOSKELETAL: Lumbar paraspinal muscle bulk is normal, restricted range of motion of the lumbar spine, [id number] tenderness of the lower lumbar spine with palpation, normal range of motion of the lower extremities bilaterally. EXTREMITIES: No clubbing, cyanosis or edema. NEUROLOGIC: Alert and oriented x 3. Strength is 5/5 in the lower extremities bilaterally. Sensory was intact to light touch in the lower extremities bilaterally. Reflexes were present and symmetric in the lower extremities bilaterally, markedly positive straight leg raising on the left, relieved by Lasegue's maneuver, negative straight leg raising on the right, normal gait. IMAGING: I reviewed a lumbar MRI scan. On that study, there is transitional lumbosacral segment. Based on that numbering system, there is a 6 mm grade 1 anterolisthesis of L3 on L4. There appears to be bilateral disk/foraminal disk protrusions at this level. On the left side, it extends 4 mm superiorly. There are postoperative changes on the right side. There is severe canal stenosis. ASSESSMENT AND PLAN: I believe the stenosis at L3-4 and the left-sided lateral recess narrowing is responsible for much of his pain. At this point, I did have a lumbar flexion and extension was performed. He felt that I would perform a left direct laminectomy at L3-4 combined with a posterior instrumentation and posterolateral fusion. I discussed all this with him including the technique, the risk and the expected postoperative course. He understands and would like to go ahead. ORIANA DR: Reinaldo TID: [id number] DAMIR
[~2021-11-04] VITALS: Ht 170.2 cm; Wt 83.7 kg
[~2021-11-04 05:59] MED LIST changes: +DEXAMETHASONE SOD PHOS 4 MG/ML VIAL ONE; +LIDOCAINE 2% PF 5 ML VIAL. ONE; +ONDANSETRON PF 4 MG/2 ML VIAL. ONE; +PHENYLEPHRINE 10 MG/ML VIAL. ONE; +PROPOFOL 10 MG/ML (20ML) VIAL. IV ONE; +PROPOFOL 50 ML IV ONE; +REMIFENTANIL 1 MG VIAL. IV ONE; +SUCCINYLCHOLINE 200 MG/10 ML VIAL. ONE; +fentaNYL PF VIAL 100 MCG/2 ML VIAL ONE
[2021-11-04] MEDS ORDERED: PROCHLORPERAZINE 10 MG/2 ML VIAL. IVP PRN (06:00)
[2021-11-04] MEDS ORDERED: fentaNYL PF VIAL 100 MCG/2 ML VIAL IVP PRN ×2 (06:00)
[2021-11-04] MEDS ORDERED: IV RINGERS,LACTATED 1000ML 1,000 ML IV SCH (06:00)
[2021-11-04] MEDS ORDERED: ceFAZolin SODIUM 1 GM in IV NORMAL SALINE 1000ML BAG 1,000 ML IRR ONE (06:00)
[2021-11-04] MEDS ORDERED: MORPHINE SULFATE 2 MG/ML INJ. IVP PRN (06:00)
[2021-11-04] MEDS ORDERED: HYDROmorphone 2 MG/ML INJ. IVP PRN (06:00)
[2021-11-04 06:26] VITALS: BP 115/71
[2021-11-04] MEDS ORDERED: THROMBIN TOPICAL 20,000 UNIT SPRAY.SYRN KIT TP ONE (06:35)
[2021-11-04] MEDS ORDERED: BUPIVACAINE-EPI 0.5% 30 ML VIAL KIT. ONE (06:35)
[2021-11-04] MEDS ORDERED: KETOROLAC 60 MG/2 ML VIAL. ONE (06:35)
[2021-11-04] MEDS ORDERED: GELATIN SPONGE SIZE 100. ONE (06:35)
[2021-11-04] MEDS ORDERED: KETAMINE HCL IN NACL, ISO-OSM 50 MG/5 ML SYRINGE ONE (07:41)
[2021-11-04] MEDS ORDERED: PROPOFOL 50 ML IV ONE ×2 (09:15→10:15)
--- NOTE | 2021-11-04 10:12 | RAD ---
PQRS Compliance Statement: One or more of the following individualized dose reduction techniques were utilized for this examinat ion: 1. Automated exposure control 2. Adjustment of the mA and/or kV according to patient size 3. Use of iterative reconstruction technique CT LUMBAR SPINE WO Clinical Indication: Reason: BRAIN LAB, LUMBAR STENOSIS Comparison: MR lumbar spine without contrast, August 19, 2021. Findings: Numbering scheme utilized previously. Transitional lumbosacral anatomy. Partially sacralized L5 segme nt with a rudimentary L5/S1 disc. There is unchanged grade 1 anterolisthesis of L3 on L4. There is un changed grade 1 retrolisthesis of L4 on L5. The alignment is otherwise maintained. There is vacuum di sc phenomenon of L4/L5. There is no acute compression fracture. The right sacroiliac joint is partial ly fused. L1/L2: The central canal is adequate. There is mild facet hypertrophy. Neural foramina are patent. L2/L3: The central canal and neural foramina are patent. L3/L4: There is anterolisthesis at this level. There is unroofing of the disc. There is broad-based p osterior disc bulge. There is severe facet hypertrophy. There is ligament flavum redundancy. There is right hemilaminotomy. There is severe central canal stenosis. There is severe bilateral neural vielka inal narrowing. L4/L5: There is mild retrolisthesis at this level. There is posterior disc osteophyte complex. There is moderate facet hypertrophy. There is right hemilaminotomy. There is mild central canal stenosis. T here is mild bilateral neural foraminal narrowing. L5/S1: The central canal is adequate. The neural foramina are patent. Left renal cyst does not require follow-up. There is no hydronephrosis. Atherosclerotic abdominal aor ta, no aneurysm. IMPRESSION: 1. Transitional lumbosacral anatomy. Numbering scheme same as prior study. 2. At L3/L4 there is severe central canal stenosis and severe bilateral neural foraminal narrowing. 3. Redemonstrated right hemilaminotomy of L3/L4 and L4/L5. Electronically signed by: Lonnie Montague MD (11/04/2021 10:10 AM) [id number]
[2021-11-04] MEDS ORDERED: HYDROmorphone 2 MG/ML INJ. ONE (11:58)
[2021-11-04] MEDS ORDERED: 0.9 % SODIUM CHLORIDE 10 ML DISP.SYRIN. IV PRN (14:30)
[2021-11-04] MEDS ORDERED: ACETAMINOPHEN 325 MG TABLET. PO PRN (14:30)
[2021-11-04] MEDS ORDERED: diphenhydrAMINE HCL 25 MG CAPSULE PO PRN (14:30)
[2021-11-04] MEDS ORDERED: MAGNESIUM HYDROXIDE 2,400 MG/30 ML ORAL.SUSP. PO PRN (14:30)
[2021-11-04] MEDS ORDERED: CYCLOBENZAPRINE 10 MG TABLET. PO PRN (14:30)
[2021-11-04] MEDS ORDERED: oxyCODONE/APAP 5/325 1 TAB TABLET PO PRN (14:30)
[2021-11-04] MEDS ORDERED: CALCIUM CARBONATE 500 MG TAB.CHEW PO PRN (14:30)
[2021-11-04] MEDS ORDERED: NALOXONE 0.4 MG/ML VIAL. IV PRN (14:30)
[2021-11-04] MEDS ORDERED: MAG HYDROX/ALUMINUM HYD/SIMETH 30 ML ORAL.SUSP PO PRN (14:30)
[2021-11-04] MEDS ORDERED: ONDANSETRON PF 4 MG/2 ML VIAL. IVP PRN (14:30)
[2021-11-04 15:40] VITALS: BP 115/76
[2021-11-04] MEDS: POTASSIUM CL 20MEQ D5-0.45NACL 1,000 ML IV SCH (15:47)
[2021-11-04] MEDS: fentaNYL PF VIAL 100 MCG/2 ML VIAL IVP PRN (16:39)
[2021-11-04] MEDS ORDERED: NICOTINE 21MG PATCH. TD PRN (17:30)
[2021-11-04 19:00] VITALS: BP 109/55
[2021-11-04] MEDS: DOCUSATE SODIUM 100 MG CAPSULE. PO SCH (20:50)
[2021-11-04] MEDS: oxyCODONE/APAP 5/325 1 TAB TABLET PO PRN (20:53)
[2021-11-04] MEDS: NON FORMULARY ITEM (Apremilast (Otezla) 30 MG) PO SCH (21:00)
--- NOTE | 2021-11-04 21:44 | NUR ---
Unable to give pts Otezla. Pharmacy here doesn't carry it and he didn't bring the bottle from home. Advised if he could have his bring it tomorrow, would could get it back on schedule. Will continue to monitor
[2021-11-04 23:00] VITALS: BP 95/54
[2021-11-05 03:00] VITALS: BP 102/58
[2021-11-05] MEDS: oxyCODONE/APAP 5/325 1 TAB TABLET PO PRN ×2 (04:35→09:49)
[2021-11-05] MEDS: POTASSIUM CL 20MEQ D5-0.45NACL 1,000 ML IV SCH (04:36)
[2021-11-05 07:30] VITALS: BP 94/53
[2021-11-05] MEDS: DOCUSATE SODIUM 100 MG CAPSULE. PO SCH (07:35)
[2021-11-05] MEDS: fentaNYL PF VIAL 100 MCG/2 ML VIAL IVP PRN (07:38)
[2021-11-05] MEDS ORDERED: FENOFIBRATE,MICRONIZED 134 MG CAPSULE PO SCH (09:00)
[2021-11-05] MEDS ORDERED: FLU VACC QUAD 21-22 (6MOS+) PF 0.5 ML SYRINGE. VAX IM ONE (09:00)
[2021-11-05] MEDS: NON FORMULARY ITEM (Apremilast (Otezla) 30 MG) PO SCH (09:00)
[2021-11-05 11:00] VITALS: BP 116/62
--- NOTE | 2021-11-05 12:31 | NUR ---
SW following. Chart reviewed, pt from home with , room air, regular diet, COVID-19 negative. Pt had surgery on 11/04/21. PT ordered. SW will continue to follow.
[2021-11-05 15:09] VITALS: BP 121/63
[2021-11-05] MEDS ORDERED: DOCU-109 PO (16:15)
[2021-11-05] MEDS ORDERED: OXYC1TAB15 PO (16:15)
--- NOTE | 2021-11-05 16:18 | DISCH ---
DISCHARGE INSTRUCTIONS Condition on Discharge Condition on Discharge: Stable Activity After Discharge Activity Instructions for Disc: Activity as tolerated, Avoid exertion, Walk in house Other activity instructions: AMBULATION ONLY EXERCISE PERMITTED; GRADUALLY INCREASE TIME AND DISTANCE Bathing Instructions: Shower-keep dressing dry, No Tub Bath until see Lifting Instructions after Dis: No heavy lifting, No pulling or pushing, Do not lift >10 pounds Exercise Instruction after Dis: Progress as tolerated Driving Instructions after Dis: No driving for 2 weeks Weight Bearing Status after Di: No restrictions, Full weight bearing, As tolerated Diet after Discharge Diet after Discharge: No Added Sugar Additional Diet Restrictions: resume home diet Wound Incision Care Wound/Incision Care: Ice to area for comfort, Keep wound/cast CDI, Change d ressing Other wound/incision instructi: NO DIRECT WATER, ANTIBIOTIC CREAM OR OINTMENT TO INCISION Wound Care Equipment: Dressings Checks after Discharge DC Comment: INCREASE FRUITS, VEGETABLES AND FIBER ATTEMPT BM EVERY 2-3 DAYS Contacting the [facility] after DC Call your doctor for: Concerns you may have Follow-Up Follow Up With: CALL [phone] FOR A 2 WEEK POST APPT WITH DR. COOLEY Treatment/Equipment after DC Adaptive Equipment Issued: Brace/splint DEYANIRA COOLEY MD Nov 05, 2021 16:18
--- NOTE | 2021-11-05 16:30 | NUR ---
REVIEWED WRITTEN DISCHARGE INSTRUCTIONS WITH POONAM AND HIS . RETURNED DEMONSTRATION OF DRESSING CHANGE; SUPPLIES GIVEN. VERBALIZED UNDERSTANDING OF RESTRICTIONS TO ACTIVITIES OF DAILY LIVING AND FOLLOW UP WITH DR. COOLEY. ALL QUESTIONS ANSWERED. DISMISSED TO HOME
--- NOTE | 2021-11-05 16:40 | PDOC ---
PROGRESS NOTES Date of Service DATE: 11/05/21 TIME: 16:38 Subjective Subjective POD #1 S/P lumbar decompression L3-4 and instrumented fusion L3-4 up in chair has been ambulating in leung leg pain resolved back/ incision pain, controlled with medication Objective Objective Vital Signs Date Time Temp Pulse Resp B/P (MAP) Pulse Ox O2 Delivery O2 Flow Rate FiO2 11/05/21 15:09 97.9 70 20 121/63 (82) 97 Room Air 97.9 11/04/21 17:30 2.0 Intake and Output 11/05/21 07:00 Intake Total 2190 ml Output Total 1050 ml Balance 1140 ml Intake Oral 240 ml IV Total 1950 ml Output Urine Total 1000 ml Estimated Blood Loss 50 ml Physical Exam General: Alert, Oriented X3, Cooperative, No acute distress MUSCULOSKELETAL: Other (CESAR) Neuro: Normal speech Skin: Other (dressing intact) Plan Plan of Care ok to dc home f/u 2 weeks Comment Review of Relevant I have reviewed the following items howard (where applicable) has been applied. Labs Laboratory Tests Test 11/04/21 06:15 POC SARS CoV-2 Antigen Negative (NEGATIVE) Medications Current Medications Fentanyl Citrate (Fentanyl 2ml Vial) 25 mcg PRN Q5MIN PRN IVP MILD PAIN 1-3; Start 11/04/21 at 06:00; Stop 11/05/21 at 05:59; Status DC Fentanyl Citrate (Fentanyl 2ml Vial) 50 mcg PRN Q5MIN PRN IVP MODERATE PAIN 4- 6; Start 11/04/21 at 06:00; Stop 11/05/21 at 05:59; Status DC Morphine Sulfate (Morphine Sulfate) 1 mg PRN Q10MIN PRN IVP SEVERE PAIN 7-10; Start 11/04/21 at 06:00; Stop 11/05/21 at 05:59; Status DC Ringer's Solution 1,000 ml @ 30 mls/hr Q24H IV Last administered on 11/04/21at 06:33; Start 11/04/21 at 06:00; Stop 11/04/21 at 17:59; Status DC Hydromorphone HCl (Dilaudid) 0.5 mg PRN Q10MIN PRN IVP SEVERE PAIN 7-10, 2nd CHOICE; Start 11/04/21 at 06:00; Stop 11/05/21 at 05:59; Status DC Prochlorperazine Edisylate (Compazine) 5 mg PACU PRN PRN IVP NAUSEA, MRX1; Start 11/04/21 at 06:00; Stop 11/05/21 at 05:59; Status DC Cefazolin Sodium/ Dextrose 50 ml @ 100 mls/hr 1X PREOP PRN IV PRIOR TO PROCEDURE Last administered on 11/04/21at 11:18; Start 11/04/21 at 06:00; Stop 11/04/21 at 18:00; Status DC Cefazolin Sodium 1 gm/Sodium Chloride 1,000 ml @ 1,000 mls/hr 1X ONCE IRR L ast administered on 11/04/21at 10:51; Start 11/04/21 at 06:00; Stop 11/04/21 at 06:59; Status DC Gelatin (Gelfoam Size 100) 1 each STK-MED ONCE .ROUTE Last administered on 11/04/21at 10:51; Start 11/04/21 at 06:35; Stop 11/04/21 at 06:35; Status DC Bupivacaine HCl/ Epinephrine Bitart (Sensorcain-Epi 0.5% Kit) 30 ml STK-MED ONCE .ROUTE Last administered on 11/04/21at 10:51; Start 11/04/21 at 06:35; Stop 11/04/21 at 06:35; Status DC Ketorolac Tromethamine (Toradol Im) 60 mg STK-MED ONCE .ROUTE Last administered on 11/04/21at 10:51; Start 11/04/21 at 06:35; Stop 11/04/21 at 06:36; Status DC Thrombin 20,000 unit STK-MED ONCE TP Last administered on 11/04/21at 10:51; Start 11/04/21 at 06:35; Stop 11/04/21 at 06:36; Status DC Propofol (Diprivan) 200 mg STK-MED ONCE IV ; Start 11/04/21 at 05:43; Stop 11/04/21 at 07:43; Status DC Lidocaine HCl (Lidocaine Pf 2% Vial) 5 ml STK-MED ONCE .ROUTE ; Start 11/04/21 at 05:43; Stop 11/04/21 at 07:43; Status DC Ondansetron HCl (Zofran) 4 mg STK-MED ONCE .ROUTE ; Start 11/04/21 at 05:43; St op 11/04/21 at 07:43; Status DC Phenylephrine HCl (Yoin-Synephrine Inj) 10 mg STK-MED ONCE .ROUTE ; Start 11/04/21 at 05:43; Stop 11/04/21 at 07:44; Status DC Propofol 50 ml @ As Directed STK-MED ONCE IV ; Start 11/04/21 at 05:43; Stop 11/04/21 at 07:44; Status DC Dexamethasone Sodium Phosphate (Decadron) 4 mg STK-MED ONCE .ROUTE ; Start 11/04/21 at 05:43; Stop 11/04/21 at 07:44; Status DC Fentanyl Citrate (Fentanyl 2ml Vial) 100 mcg STK-MED ONCE .ROUTE ; Start 11/04/21 at 05:43; Stop 11/04/21 at 07:44; Status DC Succinylcholine Chloride (Anectine) 200 mg STK-MED ONCE .ROUTE ; Start 11/04/21 at 05:43; Stop 11/04/21 at 07:44; Status DC Remifentanil HCl (Ultiva) 1 mg STK-MED ONCE IV ; Start 11/04/21 at 05:44; Stop 11/04/21 at 07:44; Status DC Ketamine HCl (Ketamine) 50 mg STK-MED ONCE .ROUTE ; Start 11/04/21 at 07:41; Stop 11/04/21 at 09:41; Status DC Propofol 50 ml @ As Directed STK-MED ONCE IV ; Start 11/04/21 at 09:15; Stop 11/04/21 at 11:16; Status DC Propofol 50 ml @ As Directed STK-MED ONCE IV ; Start 11/04/21 at 10:15; Stop 11/04/21 at 12:15; Status DC Hydromorphone HCl (Dilaudid) 2 mg STK-MED ONCE .ROUTE ; Start 11/04/21 at 11:58; Stop 11/04/21 at 13:59; Status DC Cyclobenzaprine HCl (Flexeril) 10 mg PRN TID PRN PO PAIN Last administered on 11/05/21at 07:35; Start 11/04/21 at 14:30 Non-Formulary Medication (Apremilast (Otezla)) 30 mg BID PO ; Start 11/04/21 at 21:00; Status UNV Fenofibrate (Lofibra) 134 mg DAILY PO Last administered on 11/05/21at 07:35; Start 11/05/21 at 09:00 Fentanyl Citrate (Fentanyl 2ml Vial) 50 mcg PRN Q2HR PRN IVP PAIN Last administered on 11/05/21at 07:38; Start 11/04/21 at 14:30 Acetaminophen (Tylenol) 650 mg PRN Q6HRS PRN PO MILD PAIN / TEMP > 100.3'F; Start 11/04/21 at 14:30 Al Hydroxide/Mg Hydroxide (Mylanta Plus Xs) 30 ml PRN Q3HRS PRN PO HEARTBURN / GAS; Start 11/04/21 at 14:30 Calcium Carbonate/ Glycine (Tums) 500 mg PRN Q3HRS PRN PO INDIGESTION; Start 11/04/21 at 14:30 Diphenhydramine HCl (Benadryl) 25 mg PRN Q6HRS PRN PO ITCHING; Start 11/04/21 at 14:30 Naloxone HCl (Narcan) 0.1 mg PRN Q2MIN PRN IV SEE COMMENTS; Start 11/04/21 at 14:30 Sodium Chloride (Normal Saline Flush) 3 ml QSHIFT PRN IV AFTER MEDS AND BLOOD DRAWS; Start 11/04/21 at 14:30 Potassium Chloride/Dextrose/ Sod Cl 1,000 ml @ 75 mls/hr [id number] IV Last administered on 11/05/21at 04:36; Start 11/04/21 at 15:30 Oxycodone/ Acetaminophen (Percocet 5/325) 1 tab PRN Q4HRS PRN PO MILD PAIN, 2nd CHOICE; Start 11/04/21 at 14:30 Oxycodone/ Acetaminophen (Percocet 5/325) 2 tab PRN Q4HRS PRN PO MODERATE PAIN, SEVERE PAIN Last administered on 11/05/21at 09:49; Start 11/04/21 at 14:30 Docusate Sodium (Colace) 100 mg BID PO Last administered on 11/05/21at 07:35; Start 11/04/21 at 21:00 Magnesium Hydroxide (Milk Of Magnesia) 2,400 mg PRN Q12HR PRN PO CONSTIPATION; Start 11/04/21 at 14:30 Ondansetron HCl (Zofran) 4 mg PRN Q6HRS PRN IVP NAUESA, 1ST CHOICE; Start 11/04/21 at 14:30 Influenza Virus Vaccine Quadrival (Flulaval Quad Syringe) 0.5 ml ONCE ONCE VAX IM Last administered on 11/05/21at 11:52; Start 11/05/21 at 09:00; Stop 11/05/21 at 09:01; Status DC Nicotine (Nicoderm Cq 21mg) 1 patch PRN DAILY PRN TD SMOKING CESSATION; Start 11/04/21 at 17:30 Active Scripts Active Reported Celebrex (Celecoxib) 100 Mg Capsule 100 Mg PO BID 30 Days Otezla (Apremilast) 30 Mg Tablet 30 Mg PO BID Cyclobenzaprine Hcl 10 Mg Tablet 1 Tab PO TID PRN Hydrocodone-Apap 10-325 (Hydrocodone Bit/Acetaminophen) 1 Each Tablet 1 Tab PO Q4-6HRS PRN Trilipix (Fenofibric Acid (Choline)) 135 Mg Capsule.dr Vance Cap PO DAILY Vitals/I & O Vital Sign - Last 24 Hours 11/04/21 11/04/21 11/04/21 11/04/21 16:39 17:30 19:00 19:40 Temp 99.2 99.2 Pulse 82 Resp 18 B/P (MAP) 109/55 (73) Pulse Ox 92 95 O2 Delivery Room Air Room Air Room Air Room Air O2 Flow Rate 2.0 11/04/21 11/04/21 11/04/21 11/05/21 20:53 21:23 23:00 03:00 Temp 98.9 98.3 98.9 98.3 Pulse 68 60 Resp 18 18 B/P (MAP) 95/54 (68) 102/58 (73) Pulse Ox 94 96 O2 Delivery Room Air Room Air Room Air Room Air 11/05/21 11/05/21 11/05/21 11/05/21 04:35 05:05 07:30 07:38 Temp 98.6 98.6 Pulse 56 Resp 16 20 16 B/P (MAP) 94/53 (67) Pulse Ox 96 O2 Delivery Room Air Room Air Room Air Room Air 11/05/21 11/05/21 11/05/21 08:00 11:00 15:09 Temp 98.2 97.9 98.2 97.9 Pulse 65 70 Resp 20 20 B/P (MAP) 116/62 (80) 121/63 (82) Pulse Ox 97 97 O2 Delivery Room Air Room Air Room Air Intake and Output 11/04/21 11/04/21 11/05/21 15:00 23:00 07:00 Intake Total 1550 ml 640 ml Output Total 450 ml 300 ml 300 ml Balance 1100 ml 340 ml -300 ml Justifications for Admission Other Justification 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
--- NOTE | 2021-11-07 15:09 | PATHOLOGY ---
[facility] Accession Number: [id number] . 01 Material submitted: . vertebral column - LUMBAR DECOMPRESSION . 01 Clinical history: . LUMBAR STENOSIS, SPONDYLOLISTHESIS, HERNIATED DISC WITH RADICULOPATHY LUBAR LAMINECTOMY L3-4, LUMBAR POSTERIOR FUSION AND POSTERIOR INSTRUMENTATION L3-4 . 02 Diagnosis: Segments of fibrocartilaginous, fibroadipose, and skeletal muscle tissue and bone, lumbar decompression: - Degenerative changes of fibrocartilaginous tissue. LBQ 11/07/2021 0938 Local . 02 Comment: There is no evidence of an acute inflammatory process or malignancy. (JPM/db; 11/07/2021) . 02 Electronically signed: . Phill Glover MD, Pathologist NPI- [id number] . 01 Gross description: . The specimen is received in formalin, labeled "Maksim Rocha, lumbar decompression". Received are multiple segments of pale whitmore to pink-whitmore fibrous tissue admixed with fragments of gritty bone measuring 5.0 x 4.5 x 1.0 cm in aggregate dimensions. The specimen is submitted representatively in cassette A1, following light decalcification. ([facility]; 11/05/2021) NRI/NRI 11/05/2021 1727 Local . 02 Pathologist provided ICD-10: M51.36 . 02 CPT . 454518, 143982 Specimen Comment: A courtesy copy of this report has been sent to [phone], [phone] Specimen Comment: [id number] Specimen Comment: Report sent to / DR MILLER Specimen Comment: A duplicate report has been generated due to demographic updates. Performed at: [address], [place], [place] [id number] MD Darin De Jesus MD Phone: [phone] Performed at: [address] [id number] MD Phill Glover MD Phone: [phone]
--- NOTE | 2021-11-18 19:02 | OP ---
DATE OF SURGERY: 11/04/2021 PREOPERATIVE DIAGNOSIS: Lumbar spinal stenosis from bulging disk and hypertrophic bone and facet at L3-L4 with left lumbar radiculopathy. POSTOPERATIVE DIAGNOSES: 1. Lumbar spinal stenosis from bulging disk and hypertrophic bone and facet at L3-L4 with left lumbar radiculopathy. 2. Anterolisthesis at L3-L4 with motion on flexion, extension views. OPERATION PERFORMED: 1. Left direct laminectomy at L3-L4 with decompression of dura and nerve root and microdiskectomy at L3-L4. 2. Posterior instrumentation at L3-L4, posterolateral fusion at L3-L4 using the [employer] spine system for this. PARKING METER COLLECTOR: DILEEP Hobbs assisted with the decompression, instrumentation, and closure. The operation also utilized multimodality monitoring, fluoroscopy, BrainLAB guidance. OPERATIVE INDICATIONS: The patient is a pleasant 61-year-old man who developed severe back pain along with pain, which would radiate into his lower extremities, left much greater than right. On imaging studies, he had the above-mentioned findings. This was his fourth lumbar surgery, having undergone 3 lumbar surgeries in the past. He failed conservative measures. I discussed with him the risks and benefits of this type of approach. He wanted to go ahead. We made the arrangements. DESCRIPTION OF PROCEDURE: Following general endotracheal anesthesia, the patient was positioned prone on the David table. Lumbar region was prepped and draped in standard fashion. NELLY hose and AV impulse boots were applied for DVT prophylaxis. A microscope was draped, fluoroscopy was draped and brought into the field. Monitoring was established. Ancef 2 grams was given less than one hour prior to initiation of the surgery. Using fluoroscopic guidance, we made a midline posterior incision, dissected down through skin and subcutaneous tissue and placed a microdisk retractor at L3-L4. I then brought in a microscope and using the high speed air drill, I drilled then a generous hemilaminotomy and I tilted the patient away from wa and drilled across to the midline. I trimmed away the midline with the 4 and 2.5 mm Kerrisons and trimmed away very thickened ligamentum flavum, which I peeled away. I performed a partial foraminotomy. There was a bulging disk and I did remove a disk to fully decompress the region after incising the annulus and ligament with a #11 blade. Following this, then I extended the incision superiorly and inferiorly. I tested BrainLAB Star to the inferior aspect of L4 and I initialized the BrainLAB system. I then continued my exposure placing a Conor retractor and exposed both lamina and transverse processes bilaterally. I placed a needle into the left iliac crest, aspirated 20 mL of bone marrow and then I carefully drilled into the posterior aspect of the pedicles of L3 and L4 bilaterally. I passed the black ball with stimulated EMG monitoring followed by the ball-tip probe, followed by the tap and I placed 6.5 screws in L3 and L4. I placed the yeni and nuts and during this time, I also excoriated the lateral facets and transverse processes and packed allograft bone bilaterally and at this point, after the rods were placed, I placed the nuts and torqued the system sequentially bilaterally and irrigated copiously. Hemostasis was excellent. Fluoroscopic images were excellent. I irrigated it with antibiotic solution and then I closed the wound in layers with absorbable suture and the skin was closed with skin christopher. I felt the surgery went very well. NATHAN DR: Echo TID: [id number]
== END 2021-11-05 16:45 | disposition home or self-care (01) | DRG 460 ==
LOC: OPSVCIP 05:59 → 4 NORTH 15:36
PROVIDERS: ADMIT Neurological Surgery; ATTEND Neurological Surgery
PROC: 0SB20ZZ Excision of Lumbar Vertebral Disc, Open Approach (ICD-10-PCS; 2021-11-04)
PROC: 01NB0ZZ Release Lumbar Nerve, Open Approach (ICD-10-PCS; 2021-11-04)
PROC: 00NY0ZZ Release Lumbar Spinal Cord, Open Approach (ICD-10-PCS; 2021-11-04)
PROC: 4A11X4G Monitoring of Peripheral Nervous Electrical Activity, Intraoperative, External Approach (ICD-10-PCS; 2021-11-04)
PROC: 0SG0071 Fusion of Lumbar Vertebral Joint with Autologous Tissue Substitute, Posterior Approach, Posterior Column, Open Approach (ICD-10-PCS; principal; 2021-11-04 08:30)
DX: M48.061 Spinal stenosis, lumbar region without neurogenic claudication (principal); M51.16 Intervertebral disc disorders with radiculopathy, lumbar region; M43.16 Spondylolisthesis, lumbar region; Z83.3 Family history of diabetes mellitus; Z20.822 Contact with and (suspected) exposure to COVID-19; Z86.14 Personal history of Methicillin resistant Staphylococcus aureus infection; Z87.891 Personal history of nicotine dependence; Z82.49 Family history of ischemic heart disease and other diseases of the circulatory system; Z80.9 Family history of malignant neoplasm, unspecified; Z88.0 Allergy status to penicillin
CPT/HCPCS: 36415; 72131; 76000; 86850; 86900; 86901; 88304; 88311; 90471; 90686; A4222; A4314; A4364; A4452; A4556; A4657; A4930; A6254; A6257; A6258; C1713; J0330; J0690; J1100; J1170; J1885; J2370; J2405; J2704; J3010; J3480; J3490; J7030; J7120; 97116-GP; 97530-GP; G0378

== ENCOUNTER 2021-11-08 21:24 | Emergency (ER) | payer BC ==
[~2021-11-08] VITALS: Ht 170.2 cm; Wt 63.7 kg
[~2021-11-08 21:24] MED LIST changes: -DEXAMETHASONE SOD PHOS 4 MG/ML VIAL ONE; -LIDOCAINE 2% PF 5 ML VIAL. ONE; -ONDANSETRON PF 4 MG/2 ML VIAL. ONE; +OXYC1TAB15 PO; -PHENYLEPHRINE 10 MG/ML VIAL. ONE; -PROPOFOL 10 MG/ML (20ML) VIAL. IV ONE; -PROPOFOL 50 ML IV ONE; -REMIFENTANIL 1 MG VIAL. IV ONE; -SUCCINYLCHOLINE 200 MG/10 ML VIAL. ONE; -fentaNYL PF VIAL 100 MCG/2 ML VIAL ONE
[2021-11-08 22:15] VITALS: BP 115/63
[2021-11-08] MEDS ORDERED: CEPH500T PO (22:17)
--- NOTE | 2021-11-08 22:17 | ED.ADGEN ---
Past Medical History Past Medical History: Arthritis, High Cholesterol Additional Past Medical Histor: arthitis Past Surgical History: Other Additional Past Surgical Histo: BACK Smoking Status: Current Every Day Smoker Alcohol Use: Occasionally Drug Use: None General Adult EDM: Chief Complaint: POST-OP PROBLEM HPI: HPI: Patient is a 61 year old male sent in for yellowish opaque drainage from his surgical incision. Patient had a L3 to L for fusion done 4 days ago. was changing his bandage this morning and noticed a small amount of drainage. When she changed about 2 hours ago there is a larger amount of drainage on the bandage. Called there neurosurgery office. Was instructed to come to the emergency department for antibiotics. We had a call ahead from the [facility] nurse practitioner requesting antibiotics and wound culture. Patient denies systemic complaints. He has history of psoriasis and takes Otezla Review of Systems: Review of Systems: All other systems within normal limits except for as noted in the HPI Current Medications: Current Medications Medications (Trade) Dose Ordered Sig/Alfredo Start Time Stop Time Status Last Admin Dose Admin Cephalexin HCl (Keflex) 500 mg 1X ONCE 11/08/21 22:30 11/08/21 22:31 Allergies: Allergies: Allergies Coded Allergies Type Severity Reaction Last Updated Verified Penicillins Allergy Intermediate Hives 11/04/21 Yes Physical Exam: PE: Constitutional: Well developed, well nourished, no acute distress, non-toxic appearance. [] HENT: Normocephalic, atraumatic, bilateral external ears normal, nose normal. [] Eyes: PERRLA, conjunctiva normal, no discharge. [] Neck: No rigidity, supple, no stridor. [] Cardiovascular: Regular rate and rhythm, brisk cap refill [] Lungs & Thorax: Non labored symmetric respirations, no tachypnea or respiratory distress [] Abdomen: Soft, nondistended. Skin: Warm, dry, no erythema, no rash. Surgical incision intact, no signs of dehiscence. Small amount of yellow discharge, no surrounding erythema [] Back: Unremarkable Extremities: No deformities, range of motion grossly intact, no lower extremity edema [] Neurologic: Alert and oriented X 3, no focal deficits noted. [] Psychologic: Affect normal, judgement normal, mood normal. [] EKG: EKG: [] Heart Score: C/O Chest Pain: No Risk Factors: Risk Factors: DM, Current or recent (<one month) smoker, HTN, HLP, family history of CAD, obesity. Risk Scores: Score 0 - 3: 2.5% MACE over next 6 weeks - Discharge Home Score 4 - 6: 20.3% MACE over next 6 weeks - Admit for Clinical Observation Score 7 - 10: 72.7% MACE over next 6 weeks - Early Invasive Strategies Radiology/Procedures: Radiology/Procedures: [] Course & Med Decision Making: Course & Med Decision Making Discussed with Joanie, requesting wound culture which they will be responsible for following up both in clinic. And starting on Keflex. Not requesting any further imaging or blood Dragon Disclaimer: Dragon Disclaimer: This electronic medical record was generated, in whole or in part, using a voice recognition dictation system. Departure Departure Impression: Primary Impression: Encounter for postoperative wound check Disposition: HOME / SELF CARE / HOMELESS Condition: STABLE Referrals: SHIV MILLER MD (PCP) DEYANIRA COOLEY MD Patient Instructions: Wound Care, [id number] Scripts Cephalexin (CEPHALEXIN) 500 Mg Tablet 1 TAB PO TID for antibiotic, #30 TAB Prov: VISHAL PICHARDO MD 11/08/21 VISHAL PICHARDO MD Nov 08, 2021 22:17
[2021-11-08] MEDS ORDERED: CEPHALEXIN 250 MG CAPSULE. PO ONE (22:30)
== END 2021-11-08 22:50 | disposition home or self-care (01) ==
LOC: ER 21:24
DX: Z48.817 Encounter for surgical aftercare following surgery on the skin and subcutaneous tissue (principal); E78.00 Pure hypercholesterolemia, unspecified; F17.200 Nicotine dependence, unspecified, uncomplicated; L40.9 Psoriasis, unspecified; Z88.0 Allergy status to penicillin
CPT/HCPCS: 99283

== ENCOUNTER → 2022-01-24 | Outpatient (CLI) | payer BC ==
[~2022-01-24] MED LIST changes: +CEPH500T PO
--- NOTE | 2022-01-25 15:48 | KCIC ---
XR LUMBAR SPINE 2-3V 01/24/2022 2:23 PM INDICATION: Lumbar fusion October 2021 COMPARISON: CT of the lumbar spine 11/04/2021. TECHNIQUE: AP and lateral views of the lumbar spine are provided. FINDINGS/ IMPRESSION: 1. There is transitional anatomy at the lumbosacral junction with sacralization of the fifth lumbar s egment and L5. There is 6 mm anterolisthesis of L3 on L4. There is 5 mm retrolisthesis of L4 on L5. 2. Posterior fusion identified at L3-L4 with bilateral pedicle screws and dual rods. No lucency surro unding the hardware. No fracture of the hardware. No evidence for hardware failure. 3. Mild disc height loss at T10-T11 and T11-T12 with mild anterior marginal osteophytosis. Electronically signed by: America Diaz MD (01/25/2022 3:45 PM) [id number]
== END ==
LOC: KCIC 14:20
PROVIDERS: ATTEND Neurological Surgery
DX: M43.16 Spondylolisthesis, lumbar region (principal); M25.78 Osteophyte, vertebrae; M51.24 Other intervertebral disc displacement, thoracic region; M43.26 Fusion of spine, lumbar region
CPT/HCPCS: 72100